=== PATIENT | female | born 1990 | race Caucasian/White ===

== ENCOUNTER 2017-02-21 23:11 | Inpatient (IN) ==
[2017-02-21] MEDS ORDERED: Haloperidol Lactate 5 MG/ML VIAL IM PRN (23:48)
[2017-02-21] MEDS ORDERED: traZODone 50 MG TABLET PO PRN (23:48)
[2017-02-21] MEDS ORDERED: Mag Hydrox/Al Hydrox/Simeth 30 ML UDC PO PRN (23:48)
[2017-02-21] MEDS ORDERED: *HR* LORazepam 1 MG TABLET PO PRN (23:48)
[2017-02-21] MEDS ORDERED: *HR* LORazepam 2 MG/ML VIAL IM PRN (23:48)
[2017-02-21] MEDS ORDERED: hydrOXYzine pamoate 25 MG CAPSULE PO PRN (23:48)
[2017-02-21] MEDS ORDERED: MOM Conc 10 ML UD.LIQ PO PRN (23:48)
[2017-02-22] MEDS: Ibuprofen 400 MG TABLET PO PRN (01:34)
--- NOTE | 2017-02-22 12:01 | Psychiatry History & Physical ---
Date of Encounter: 02/22/17 Time of Encounter: 11:00 History of Present Illness Patient Stated Chief Complaint: Suicidal Medicare Admission Attestation: For traditional Medicare patients the provided hospital inpatient services are reasonable and necessary and in the case of services not specified as inpatient -only under 42 CFR 419.22 (n), that they are appropriately provided as inpatient services in accordance 42 CFR 412.3. For Critical Access Hospital the patient may reasonably be expected to be discharged or transferred to a hospital within 96 hours after admission to the Critical Access Hospital. Admitted From: Hospital to Hospital Transfer ([facility]) History of Present Illness: Ms. Bravo is a 26 year old female admitted from [facility] for evaluation treatment suicidal ideation. Records from the hospital indicated the patient was having suicidal ideation was a plan to hang herself in the closet or a running into traffic to kill herself. Patient previously had a history of anxiety most of her life but she started experiencing mood swings and depression after her first child that she had at age 15. She described manic episodes that last for 2 weeks at time was increased energy and irritability and depressed more that last for several weeks at a time where she is more energy and lack of motivation to get up and go to work and would miss several days of work. Patient stopped taking her medication for the past week this medication included Abilify and Cymbalta and Ambien. Patient also has a history of drug abuse including marijuana and alcohol and according to her "alcohol use was increased in the last couple weeks. Patient is and has 2 children and she works in environmental services in the hospital. Family history is positive for bipolar in her mother and depression and anxiety in her father. Past Med Surg Social Fam HX - Past Medical History Medical history: migraine - Past Psychiatric History Psychiatric history: Reports: anxiety, bipolar. Denies: prior suicide attempt, previous psychiatric hospitalization Family psychiatric history: Unknown Family History of Suicide: Unknown - Social History Smoking Status: Former smoker Smokeless Tobacco Status: No Alcohol use: recent Drug use: marijuana Medications & Allergies Acetaminophen [Tylenol] 1,000 mg PO Q6HR 02/22/17 [History] Aripiprazole [Abilify] 10 mg PO DAILY 02/22/17 [History] Baclofen [Lioresal] 10 mg PO TID 02/22/17 [History] Buspirone HCl [Buspar] 10 - 30 mg PO BID PRN 02/22/17 [History] Butalbital/Aspirin/Caffeine [Fiorinal 50-325-40 mg Capsule] 1 - 2 cap PO Q4H PRN MDD 6 tabs/week 02/22/17 [History] Duloxetine HCl [Cymbalta] 60 mg PO DAILY 02/22/17 [History] Zolpidem [Ambien] 10 mg PO HS 02/22/17 [History] Allergies diphenhydramine [From Benadryl] Allergy (Verified 02/21/17 23:18) Hives Review of Systems Psychiatric: Reports: depression, anxiety, suicidal ideation, mood swings Mental Status Exam Patient orientation: Yes Person, Yes Time, Yes Place Level of alertness: Alert Patient appearance: Appropriate, Well Groomed, Obese Behavior: calm, cooperative, anxious Psychomotor activity: Normal Eye contact: Maintains Eye Contact Mood description: Depressed, Anxious Affect description: congruent with mood, constricted, dysphoric Speech pattern: Normal rate, Normal rhythm, Normal tone Speech volume: Normal Thought process: Linear, Goal Oriented Thought content: Yes Suicidal ideation, No Homicidal ideation, No Overt delusions Perceptual disturbances: No Auditory hallucinations, No Visual hallucinations Attention span: Capable of Focused Attention Memory description: Grossly Intact Patient reliability: Reliable Historian Intelligence estimate: Average Judgment: Limited Insight: Partial Results - Vital Signs Vital signs: Temp Pulse Resp BP 98.4 F 87 16 110/77 02/22/17 09:00 02/22/17 09:00 02/22/17 09:00 02/22/17 09:00 Assessment and Plan (1) Bipolar disorder, most recent episode depressed Current visit: Yes Status: Acute Plan: Admit inpatient for safety and stabilization, Close observation, Suicide Precautions per unit protocol, Encourage participation in unit milieu, Group Therapy, Monitor sleep, Monitor appetite Additional Plan: We will start patient on Topamax 50 mg daily and continue Cymbalta 60 mg daily and continue BuSpar and Ambien. Will discontinue Abilify. Risks, benefits, side effects, alternatives discussed w/pt: Yes Patient agreeable to treatment: Yes Estimated Length of Stay (Days): 5
[2017-02-22] MEDS: Topiramate 25 MG CAP.SPRINK PO SCH (14:05)
[2017-02-22] MEDS ORDERED: Acetaminophen/Butalbital/CaffeineTABLET PO PRN (14:51)
[2017-02-22] MEDS ORDERED: NON-FORMULARY MEDICATION 1 EACH EACH (Duloxetine Hcl [Cymbalta] 60 MG) PO SCH (15:00)
[2017-02-22] MEDS: Baclofen 10 MG TABLET PO SCH ×2 (16:41→20:23)
[2017-02-22] MEDS: ARIPiprazole 10 MG TABLET PO SCH (16:41)
[2017-02-23] MEDS: ARIPiprazole 10 MG TABLET PO SCH (09:26)
[2017-02-23] MEDS: Topiramate 25 MG CAP.SPRINK PO SCH (09:26)
[2017-02-23] MEDS: Baclofen 10 MG TABLET PO SCH ×3 (09:26→21:05)
--- NOTE | 2017-02-23 13:58 | Psychiatry Progress Note ---
Date of Encounter: 02/23/17 Time of Encounter: 13:15 Subjective Interval history: Patient is here for follow-up. She reports feeling better, had a good night sleep. She denies any side effects from Topamax and feeling less depressed and less anxious. She denies suicidal ideation. She participated in group activities. I discussed with her treatments plan and medication and she is interested in losing weight and like to be taken off Abilify, she noticed significant weight gain after taking this medicine. Review of Systems Psychiatric: Reports: depression, anxiety, suicidal ideation, mood swings Objective: Exam Patient orientation: Yes Person, Yes Time, Yes Place Level of alertness: Alert Patient appearance: Appropriate, Well Groomed, Obese Behavior: calm, cooperative Psychomotor activity: Normal Eye contact: Maintains Eye Contact Mood description: Euthymic/stable, Anxious Affect description: congruent with mood, full range Speech pattern: Normal rate, Normal rhythm, Normal tone Speech volume: Normal Thought process: Linear, Goal Oriented Thought content: No Suicidal ideation, No Homicidal ideation, No Overt delusions Perceptual disturbances: No Auditory hallucinations, No Visual hallucinations Judgment: Fair Insight: Partial Results - Vital Signs Vital Signs: Temp Pulse Resp BP 98.4 F 94 16 120/82 02/23/17 09:00 02/23/17 09:00 02/23/17 09:00 02/23/17 09:00 Assessment and Plan (1) Bipolar disorder, most recent episode depressed Current visit: Yes Status: Acute Plan: Continue hospitalization, Close observation, Suicide Precautions per unit protocol, Encourage participation in unit milieu, Group Therapy, Monitor sleep, Monitor appetite Additional Plan: We will discontinue Abilify as discussed with the patient due to side effects and weight gain. Risks, benefits, side effects, alternatives discussed w/pt: Yes Patient agreeable to treatment: Yes Consult [facility]charge Plan - [facility] (The above appointment is with Hilda Parra for counseling. You will also see Dariana Kim for medication management on )
[2017-02-23] MEDS: Ibuprofen 400 MG TABLET PO PRN (19:22)
[2017-02-24 08:15] VITALS: BP 119/80
[2017-02-24] MEDS: Baclofen 10 MG TABLET PO SCH ×2 (08:27→14:26)
[2017-02-24] MEDS: Topiramate 25 MG CAP.SPRINK PO SCH (08:27)
--- NOTE | 2017-02-24 12:39 | Discharge Summary ---
Date of Encounter: 02/24/17 Time of Encounter: 12:25 Diagnosis - Discharge Diagnosis (1) Bipolar disorder, most recent episode depressed Status: Acute Medications - Discharge Medications Prescriptions: Buspirone HCl [Buspar] 30 mg PO BID #60 tablet Duloxetine HCl [Cymbalta] 60 mg PO DAILY #30 capsule. Topiramate [Topamax] 50 mg PO DAILY #60 cap Zolpidem [Ambien] 10 mg PO HS #30 tablet Acetaminophen [Tylenol] 1,000 mg PO Q6HR 02/22/17 [History] Baclofen [Lioresal] 10 mg PO TID 02/22/17 [History] Butalbital/Aspirin/Caffeine [Fiorinal 50-325-40 mg Capsule] 1 - 2 cap PO Q4H PRN MDD 6 tabs/week 02/22/17 [History] Buspirone HCl [Buspar] 30 mg PO BID #60 tablet 02/24/17 [Rx] Duloxetine HCl [Cymbalta] 60 mg PO DAILY #30 capsule. 02/24/17 [Rx] Topiramate [Topamax] 50 mg PO DAILY #60 cap 02/24/17 [Rx] Zolpidem [Ambien] 10 mg PO HS #30 tablet 02/24/17 [Rx] Allergies diphenhydramine [From Benadryl] Allergy (Verified 02/21/17 23:18) Hives Provider Date of admission: 02/21/17 23:11 Primary care physician: PCP NO Discharging clinician: Kenyon Dalton Assessment and Plan - Patient/Caregiver Discharge Instructions Activity: resume usual activities as tolerated Diet: regular diet - Follow up Plan Follow up with: [facility] [Outside] - 03/07/17 10:00 am (The above appointment is with Hilda Parra for counseling. You will also see Dariana Kim for medication management on 03/02/2017 at 8:00am.) Functional capacity at discharge: independent ambulation Overall status at discharge: Stable Disposition: Home, Self-Care Hospital Course Hospital course: Ms. Bravo is a 26 year old female admitted from his [facility] for evaluation and treatment of suicidal ideation and depression. For details of the admission please see admission. On the units patient medication were reviewed and adjusted, Abilify was discontinued and patient was started on Topamax 50 mg daily in addition to Cymbalta and BuSpar. Patient responded well to medication changes she reported improved sleep and increase energy. She denied depressive symptoms she denies suicidal ideation. She participated in activities and groups. And she was more future oriented. She was educated about her medication compliance and given guidelines for healthy diet and exercise to help her lose some weight. Her discharge and follow-up plans were completed by the health care social worker. - Time Spent with Patient Total time spent providing and/or coordinating discharge services: Greater than 30 minutes Quality - Multiple Antipsychotics Patient discharged on 2 or more antipsychotic medications: No Procedures - Procedures Procedures: Medication Management, Crisis Stabilization, Supportive Therapy, Group Therapy, Psychoeducational Therapy Mental Status Exam - Mental Status Exam Patient orientation: Yes Person, Yes Time, Yes Place Level of alertness: Alert Patient appearance: Appropriate, Well Groomed, Obese Behavior: calm, cooperative Psychomotor activity: Normal Eye contact: Maintains Eye Contact Mood description: Euthymic/stable Affect description: congruent with mood, full range Speech pattern: Normal rate, Normal rhythm, Normal tone Speech Volume: Normal Thought process: Linear, Goal Oriented Thought Content: No Suicidal ideation, No Homicidal ideation, No Overt delusions Perceptual Disturbances: No Auditory hallucinations, No Visual hallucinations Judgment: Limited Insight: Partial
== END 2017-02-24 16:05 | disposition home or self-care (01) | DRG 753 ==
LOC: 1ANU 23:11
PROVIDERS: ADMIT Psychiatry & Neurology Psychiatry; ATTEND Psychiatry & Neurology Psychiatry